=== PATIENT | male | born 1990 | race Hispanic/Latino ===

== ENCOUNTER 2016-09-17 20:18 | Emergency (ER) | payer SELFPAY ==
[~2016-09-17] VITALS: Ht 177.8 cm; Wt 76.0 kg
[~2016-09-17 20:18] MED LIST: NO MEDS
[2016-09-17] MEDS ORDERED: BENADRYL 50MG C50 MG PO (21:01)
[2016-09-17] MEDS ORDERED: [UNRECOGNIZED DRUG - OTHER] TOP (21:01)
[2016-09-17 21:06] VITALS: BP 139/97
== END 2016-09-17 21:08 | disposition home or self-care (01) | DRG 607 ==
LOC: ED 20:18
DX: L23.7 Allergic contact dermatitis due to plants, except food (principal)

== ENCOUNTER 2019-05-10 | Emergency (ER) | payer SELFPAY ==
[~2019-05-10] MED LIST changes: +BENADRYL 50MG C50 MG PO; +[UNRECOGNIZED DRUG - OTHER] TOP
[2019-05-10] MEDS ORDERED: CEPHALEXIN500 M1 PO (07:20)
[2019-05-10] MEDS ORDERED: BACTRIM DS1 TAB PO (07:20)
== END 2019-05-10 07:38 | disposition home or self-care (01) | DRG 603 ==
DX: L03.811 Cellulitis of head [any part, except face] (principal)